=== PATIENT | male | born 2000 | race Caucasian/White ===

== ENCOUNTER 2024-03-24 19:04 | Emergency (ER) | payer OTHER ==
[~2024-03-24] VITALS: Ht 188 cm; Wt 62.1 kg
[~2024-03-24 19:04] MED LIST: ADHD MED; AMOCLA400S PO; AMOCLASUA; ATOM10 PO; BIPOLAR MED; Cephalexin250 MG/5 M PO; Ciprodex Otic7.5 ML RIGHTEAR; METPHE10 PO; METPHE5 PO; ONDA4ODT MM
[2024-03-24 20:31] VITALS: BP 130/86
== END 2024-03-24 21:05 | disposition left against medical advice (07) ==
LOC: ER 19:04
DX: H53.9 Unspecified visual disturbance (principal); Z53.29 Procedure and treatment not carried out because of patient's decision for other reasons
CPT/HCPCS: 99281